=== PATIENT | female | born 1925 | race Caucasian/White ===

== ENCOUNTER 2016-07-05 20:46 | Emergency (ER) | payer OTHER, MEDICARE ==
[~2016-07-05] VITALS: Ht 152.4 cm; Wt 60.5 kg
[~2016-07-05 20:46] MED LIST: AMLODIPINE BESYL5 MG PO; ARICEPT23 MG PO; ATORVASTATIN CA80 MG PO; BUSPAR10 MG PO; CLOPIDOGREL75 MG PO; Ceftin PO; DEPAKOTE250 MG; DUONEB 2.5-0.5 M3 ML AEROSOL; ENEMA133 M2 PR; FUROSEMIDE20 MG PO; KEFLEX500 MG PO; KLOR-CON M2020 MEQ PO; LISINOPRIL10 MG PO; LOPRESSOR100 M1 PO; LOPRESSOR50 MG PO; Lopressor PO; MILK OF MAGN PO; MIRTAZAPINE15 MG PO; MOTRIN800 MG PO; NAPROSYN500 MG PO; OMEPRAZOLE20 MG PO; PAROXETINE HCL20 MG PO; PROMETHAZINE HC25 M1 PO; SENNA8.6 MG PO; SUPPOSITORY1 EACH PR; TRAMADOL HCL50 MG PO; TUSSIN DM LIQU118 ML PO; TYLENOL REGULA325 MG PO; ULTRAM50 MG PO; Ultram PO; Valium PO
[2016-07-05 23:53] VITALS: BP 149/60
== END 2016-07-05 23:54 ==
LOC: EME → EDBD 20:46 → EME 20:46
PROC: 0HQ1XZZ Repair Face Skin, External Approach (ICD-10-PCS; principal; 2016-07-05)
DX: S01.111A Laceration without foreign body of right eyelid and periocular area, initial encounter (principal); W19.XXXA Unspecified fall, initial encounter; Y92.129 Unspecified place in nursing home as the place of occurrence of the external cause
CPT/HCPCS: 70450; 70480; 73521; 99281; 99284